=== PATIENT | female | born 1995 | race Two or more races ===

== ENCOUNTER 2023-01-27 16:29 | Inpatient (IN) | payer OTHER ==
[~2023-01-27] VITALS: Ht 165.1 cm; Wt 114.3 kg
[2023-01-27] MEDS ORDERED: APRESOLINE 10MG10 MG PO (18:41)
[2023-01-27] MEDS ORDERED: PRENATAL FORMU1 EAC2 PO (18:42)
[2023-01-27] MEDS ORDERED: CHILDREN'S ASPI81 MG PO (18:42)
== END 2023-01-31 14:27 | disposition home or self-care (01) | DRG 833 ==
LOC: LDR 16:29
PROVIDERS: Student in an Organized Health Care Education/Training Program; ADMIT Specialist; ATTEND Specialist
PROC: 4A1HXCZ Monitoring of Products of Conception, Cardiac Rate, External Approach (ICD-10-PCS; principal; 2023-01-27)
PROC: BY4DZZZ Ultrasonography of Second Trimester, Multiple Gestation (ICD-10-PCS; 2023-01-28)
DX: O11.2 Pre-existing hypertension with pre-eclampsia, second trimester (principal); O30.032 Twin pregnancy, monochorionic/diamniotic, second trimester; O26.842 Uterine size-date discrepancy, second trimester; O36.8122 Decreased fetal movements, second trimester, fetus 2; O99.212 Obesity complicating pregnancy, second trimester; Z3A.25 25 weeks gestation of pregnancy; Z20.822 Contact with and (suspected) exposure to COVID-19; E66.8 Other obesity

== ENCOUNTER 2023-02-04 22:03 | Inpatient (IN) | payer OTHER ==
[~2023-02-04] VITALS: Ht 165.1 cm; Wt 114.3 kg
[~2023-02-04 22:03] MED LIST: APRESOLINE 10MG10 MG PO; CHILDREN'S ASPI81 MG PO; PRENATAL FORMU1 EAC2 PO
[2023-02-04] MEDS ORDERED: CHILDREN'S ASPI81 MG PO (22:48)
[2023-02-04] MEDS ORDERED: LABETALOL HCL200 MG PO ×3 (22:49→22:50)
[2023-02-04 23:09] LABS: HEMATOCRIT 31.4 % (36.0-45.00); MEAN CELL VOLUME 85.3 fL (80.00-100.00); MEAN CORPUSCULAR HEMOGLOBIN 27.1 pg (27.00-32.0); MEAN CORPUSCULAR HGB CONC 31.8 g/dl (32.0-36.0); PLATELET COUNT 316 K/uL (150-450); RED BLOOD COUNT 3.68 M/uL (4.00-6.00); RED CELL DISTRIBUTION WIDTH 14.3 % (11.5-14.5)
[2023-02-05] LABS: PARTIAL THROMBOPLASTIN TIME 28.7 SECONDS (22.0-34.0)
[2023-02-05 00:04] LABS: ALBUMIN 2.3 gm/dL (3.4-5.0); BILIRUBIN TOTAL 0.21 mg/dL (0.3-1.2); CALCIUM 9.2 mg/dL (8.5-10.1); CREATININE SERUM 0.74 mg/dL (0.55-1.02); GFR 95.62; GLOBULINA 3.9 G/DL (2.4-3.5); POTASSIUM 4.51 mEq/L (3.5-5.1); TOTAL PROTEIN 6.2 gm/dL (6.4-8.2)
[2023-02-05] MEDS ORDERED: NORVASC2.5 MG (09:20)
[2023-02-06 07:07] LABS: HEMATOCRIT 29.8 % (36.0-45.00); MEAN CORPUSCULAR HGB CONC 33.8 g/dl (32.0-36.0); PLATELET COUNT 306 K/uL (150-450); RED BLOOD COUNT 3.54 M/uL (4.00-6.00); RED CELL DISTRIBUTION WIDTH 15.2 % (11.5-14.5)
[2023-02-06 07:30] LABS: HEMOGLOBIN 10.1 g/dL (12.0-15.00); MEAN CORPUSCULAR HEMOGLOBIN 28.5 pg (27.00-32.0)
[2023-02-06 07:41] LABS: PARTIAL THROMBOPLASTIN TIME 27.1 SECONDS (22.0-34.0)
[2023-02-06 07:46] LABS: ALBUMIN 2.3 gm/dL (3.4-5.0); BILIRUBIN TOTAL 0.19 mg/dL (0.3-1.2); CALCIUM 8.1 mg/dL (8.5-10.1); CREATININE SERUM 0.77 mg/dL (0.55-1.02); GFR 91.34; POTASSIUM 4.57 mEq/L (3.5-5.1); TOTAL PROTEIN 6.3 gm/dL (6.4-8.2)
[2023-02-06 19:37] LABS: HEMOGLOBIN 9.8 g/dL (12.0-15.00); MEAN CELL VOLUME 83.9 fL (80.00-100.00); MEAN CORPUSCULAR HEMOGLOBIN 28.3 pg (27.00-32.0); MEAN CORPUSCULAR HGB CONC 33.8 g/dl (32.0-36.0); PLATELET COUNT 308 K/uL (150-450); RED BLOOD COUNT 3.45 M/uL (4.00-6.00)
[2023-02-06 19:53] LABS: PARTIAL THROMBOPLASTIN TIME 25.6 SECONDS (22.0-34.0)
[2023-02-06 20:00] LABS: ALBUMIN 2.4 gm/dL (3.4-5.0); ALKALINE PHOSPHATASE 124 U/L (50-136); ALT/SGPT 22 U/L (12-78); AST/SGOT 21 U/L (15-37); BLOOD UREA NITROGEN 10 mg/dL (7-18); BUN CREA RATIO 11 (7.0-25.0); CALCIUM 8.6 mg/dL (8.5-10.1); CARBON DIOXIDE 22 mEq/L (21-32); CHLORIDE 108 mmol/L (98-107); CREATININE SERUM 0.93 mg/dL (0.55-1.02); GFR 73.46; GLOBULINA 3.7 G/DL (2.4-3.5); GLUCOSE FASTING 113 mg/dL (65-100); OSMOLALITY SERUM 277 MOSM/KG (275-295); SODIUM 139 mmol/L (136-145); TOTAL PROTEIN 6.1 gm/dL (6.4-8.2)
[2023-02-06 20:03] LABS: BILIRUBIN TOTAL < 0.10 mg/dL (0.3-1.2)
[2023-02-06 23:01] LABS: ABG PH 7.415 (7.35-7.45); ABG PO2 88.9 mmHg (80-100); ABG pCO2 31.2 mmHg (35-45); BASE EXCESS -3.8 mmol/l; BICARBONATE 19.5 mmol/l (23-25); SaO2 96.8 %
[2023-02-07 00:41] LABS: HEMATOCRIT 24.2 % (36.0-45.00); MEAN CELL VOLUME 83.5 fL (80.00-100.00); MEAN CORPUSCULAR HEMOGLOBIN 27.9 pg (27.00-32.0); MEAN CORPUSCULAR HGB CONC 33.4 g/dl (32.0-36.0); PLATELET COUNT 297 K/uL (150-450)
[2023-02-07 00:42] LABS: HEMOGLOBIN 8.1 g/dL (12.0-15.00)
[2023-02-07 12:42] LABS: HEMATOCRIT 28.4 % (36.0-45.00); HEMOGLOBIN 9.4 g/dL (12.0-15.00); MEAN CORPUSCULAR HEMOGLOBIN 27.3 pg (27.00-32.0); PLATELET COUNT 272 K/uL (150-450); RED BLOOD COUNT 3.43 M/uL (4.00-6.00); RED CELL DISTRIBUTION WIDTH 15.4 % (11.5-14.5)
[2023-02-07 13:25] LABS: ALBUMIN 1.9 gm/dL (3.4-5.0); BILIRUBIN TOTAL 0.52 mg/dL (0.3-1.2); CALCIUM 8.6 mg/dL (8.5-10.1); CREATININE SERUM 0.78 mg/dL (0.55-1.02); GFR 89.99; GLOBULINA 3.1 G/DL (2.4-3.5); POTASSIUM 4.69 mEq/L (3.5-5.1)
[2023-02-07 13:45] LABS: PARTIAL THROMBOPLASTIN TIME 25.8 SECONDS (22.0-34.0)
[2023-02-07 20:42] LABS: HEMATOCRIT 31.2 % (36.0-45.00); MEAN CELL VOLUME 83.2 fL (80.00-100.00); MEAN CORPUSCULAR HEMOGLOBIN 26.7 pg (27.00-32.0); MEAN CORPUSCULAR HGB CONC 32.1 g/dl (32.0-36.0); PLATELET COUNT 278 K/uL (150-450); RED BLOOD COUNT 3.75 M/uL (4.00-6.00); RED CELL DISTRIBUTION WIDTH 15.6 % (11.5-14.5)
[2023-02-11 09:50] LABS: HEMATOCRIT 27.6 % (36.0-45.00); MEAN CELL VOLUME 84.9 fL (80.00-100.00); MEAN CORPUSCULAR HGB CONC 32.5 g/dl (32.0-36.0); PLATELET COUNT 324 K/uL (150-450); RED BLOOD COUNT 3.25 M/uL (4.00-6.00); RED CELL DISTRIBUTION WIDTH 15.7 % (11.5-14.5)
[2023-02-11 09:51] LABS: HEMOGLOBIN 8.9 g/dL (12.0-15.00); MEAN CORPUSCULAR HEMOGLOBIN 27.3 pg (27.00-32.0)
[2023-02-11 10:41] LABS: ALBUMIN 2.3 gm/dL (3.4-5.0); BILIRUBIN TOTAL 0.28 mg/dL (0.3-1.2); CALCIUM 8.5 mg/dL (8.5-10.1); CREATININE SERUM 0.63 mg/dL (0.55-1.02); GFR 115.14; GLOBULINA 3.2 G/DL (2.4-3.5); POTASSIUM 4.24 mEq/L (3.5-5.1); TOTAL PROTEIN 5.5 gm/dL (6.4-8.2)
[2023-02-12] MEDS ORDERED: HYDRALAZINE HC100 MG PO (13:30)
[2023-02-12] MEDS ORDERED: TRANDATE300 MG PO (13:30)
[2023-02-12] MEDS ORDERED: FUSION PLUS CA1 EACH PO (13:31)
[2023-02-12] MEDS ORDERED: PROCARDIA XL90 MG PO (13:31)
== END 2023-02-12 14:06 | disposition home or self-care (01) | DRG 786 ==
LOC: LDR 22:03 → OB/GYN 02-07 18:19
PROVIDERS: Obstetrics & Gynecology; ADMIT Specialist; ATTEND Specialist
PROC: B246ZZZ Ultrasonography of Right and Left Heart (ICD-10-PCS; 2023-02-05)
PROC: 4A1HXCZ Monitoring of Products of Conception, Cardiac Rate, External Approach (ICD-10-PCS; 2023-02-05)
PROC: 10D00Z1 Extraction of Products of Conception, Low, Open Approach (ICD-10-PCS; principal; 2023-02-06 18:56)
PROC: 30233N1 Transfusion of Nonautologous Red Blood Cells into Peripheral Vein, Percutaneous Approach (ICD-10-PCS; 2023-02-07)
DX: O10.02 Pre-existing essential hypertension complicating childbirth (principal); O60.12X2 Preterm labor second trimester with preterm delivery second trimester, fetus 2; O30.032 Twin pregnancy, monochorionic/diamniotic, second trimester; O11.4 Pre-existing hypertension with pre-eclampsia, complicating childbirth; O99.02 Anemia complicating childbirth; D62 Acute posthemorrhagic anemia; O99.214 Obesity complicating childbirth; E66.8 Other obesity; Z3A.27 27 weeks gestation of pregnancy; Z37.2 Twins, both liveborn; Z20.822 Contact with and (suspected) exposure to COVID-19

== ENCOUNTER 2024-04-25 17:02 | Emergency (ER) | payer OTHER ==
[~2024-04-25] VITALS: Ht 165.1 cm; Wt 99.3 kg
[~2024-04-25 17:02] MED LIST changes: +FUSION PLUS CA1 EACH PO; +HYDRALAZINE HC100 MG PO; +LABETALOL HCL200 MG PO; +NORVASC2.5 MG; +PROCARDIA XL90 MG PO; +TRANDATE300 MG PO
[2024-04-25] MEDS ORDERED: WELLBUTRIN XL300 MG PO (18:24)
[2024-04-25] MEDS ORDERED: LEXAPRO5 MG PO (18:24)
[2024-04-25] MEDS ORDERED: ZESTRIL10 M1 PO (18:24)
[2024-04-25] MEDS ORDERED: 0.9 % SODIUM CHLORIDE 500 ML IV STA (19:34)
[2024-04-25] MEDS ORDERED: ACETAMINOPHEN 500 MG GEL..CAP PO ONE (19:45)
[2024-04-25] MEDS ORDERED: CEFTRIAXONE SODIUM 2,000 MG VIAL IV ONE (19:45)
[2024-04-25 20:31] LABS: PH,URINE 8.5 (5.0-8.0); URINE APPEARANCE Clear; URINE BILIRRUBIN Negative (NEGATIVE); URINE BLOOD Negative; URINE COLOR Yellow; URINE GLUCOSE Negative (NEGATIVE); URINE KETONE Negative (NEGATIVE); URINE LEUKOCYTE Negative; URINE NITRATE Negative; URINE PROTEIN Trace (NEGATIVE)
[2024-04-25 20:32] LABS: HEMATOCRIT 38.2 % (36.0-45.00); HEMOGLOBIN 12.9 g/dL (12.0-15.00); MEAN CELL VOLUME 84.5 fL (80.00-100.00); MEAN CORPUSCULAR HEMOGLOBIN 28.6 pg (27.00-32.0); MEAN CORPUSCULAR HGB CONC 33.8 g/dl (32.0-36.0); PLATELET COUNT 315 K/uL (150-450); RED BLOOD COUNT 4.52 M/uL (4.00-6.00); RED CELL DISTRIBUTION WIDTH 13.8 % (11.5-14.5)
[2024-04-25 20:41] LABS: URINE BACTERIA 65.5 uL (0.0-1933); URINE EPITHELIAL CELLS 63.2 uL (0.0-38.8); URINE RBC 19.8 uL (0.0-20.8); URINE WBC 6.1 uL (0.0-23.2)
[2024-04-25 20:46] LABS: URINE CAST 0.15 uL (0.0-1.40)
[2024-04-25 20:47] LABS: CALCIUM 9.6 mg/dL (8.5-10.1); CREATININE SERUM 0.76 mg/dL (0.55-1.02); GFR 91.99; POTASSIUM 4.18 mEq/L (3.5-5.1)
[2024-04-25] MEDS ORDERED: OSELTAMIVIR PHOSPHATE 75 MG CAPSULE PO ONE (21:30)
== END 2024-04-25 21:58 | disposition home or self-care (01) ==
LOC: ER 17:02
PROVIDERS: Emergency Medicine
DX: J11.1 Influenza due to unidentified influenza virus with other respiratory manifestations (principal); R50.9 Fever, unspecified; Z20.822 Contact with and (suspected) exposure to COVID-19